=== PATIENT | male | born 1975 | race Two or more races ===

== ENCOUNTER 2022-11-21 18:36 | Emergency (ER) | payer SELFPAY ==
[~2022-11-21] VITALS: Ht 175.3 cm; Wt 81.8 kg
[2022-11-21 21:53] VITALS: BP 139/60
== END 2022-11-21 22:17 | disposition home or self-care (01) ==
LOC: EMS 18:40
DX: M25.522 Pain in left elbow (principal); F17.210 Nicotine dependence, cigarettes, uncomplicated
CPT/HCPCS: 99282; Z7502

== ENCOUNTER 2023-11-15 07:18 | Emergency (ER) | payer MEDICAID, OTHER ==
[~2023-11-15] VITALS: Ht 167.6 cm; Wt 79.5 kg
[2023-11-15 07:19] VITALS: BP 151/92; PULSE 58; RESP 20; TEMP 97.8
== END 2023-11-15 08:32 | disposition left against medical advice (07) ==
LOC: EMS 07:39
DX: R31.9 Hematuria, unspecified (principal); Z53.21 Procedure and treatment not carried out due to patient leaving prior to being seen by health care provider
CPT/HCPCS: 99281; Z7502